=== PATIENT | female | born 1980 | race Caucasian/White ===

== ENCOUNTER 2021-04-08 13:45 | Outpatient (REF) | payer OTHER, SELFPAY ==
[2021-04-12 16:31] LABS: HPV 16 RNA NOT DETECTED (NOT DETECTED); HPV mRNA E6/E7 rflx Detected (Not Detected)
== END 2021-04-08 13:46 | disposition home or self-care (01) ==
LOC: HO.LAB 13:45
PROVIDERS: Visit Provider Obstetrics & Gynecology
DX: Z01.419 Encounter for gynecological examination (general) (routine) without abnormal findings (principal)
CPT/HCPCS: 87624; 87625; 88142

== ENCOUNTER 2021-05-06 09:08 | Outpatient (REF) | payer OTHER, SELFPAY | END 2021-05-06 09:09 | disposition home or self-care (01) | LOC: HO.LAB 09:08 | PROVIDERS: PCP Internal Medicine; Visit Provider Obstetrics & Gynecology | DX: D06.9 Carcinoma in situ of cervix, unspecified (principal); F41.9 Anxiety disorder, unspecified; F17.210 Nicotine dependence, cigarettes, uncomplicated | CPT/HCPCS: 57454; 88305; 88341; 88342; 88360 ==

== ENCOUNTER 2021-05-19 09:41 | Outpatient (REF) | payer OTHER, SELFPAY ==
--- NOTE | ~2021-05-19 | MM_ITS ---
EXAMINATION: MM SCREENING DIGITAL BREAST TOMOSYNTHESIS, BILATERAL CLINICAL INFORMATION: Screening. Asymptomatic. Age 40. No prior breast imaging. Family history breast cancer, paternal aunt. The lifetime risk of breast cancer based on the Tyrer-Cuzick Model is 11%. COMPARISON: None (current study represents initial baseline exam). TECHNIQUE: Digital breast tomosynthesis is performed in both the craniocaudal and mediolateral oblique views along with computer-aided detection (CAD). Synthesized 2D images are generated from the tomosynthesis. FINDINGS: The breasts are heterogeneously dense, which may obscure small masses (ACR BI-RADS breast composition Category c). There are no significant masses, abnormal calcifications, or other abnormalities. The axilla and skin contours are unremarkable. MM/MM tomosynthesis screening BI IMPRESSION: No mammographic evidence of malignancy. ASSESSMENT: BI-RADS 1: Negative RECOMMENDATION: Routine annual mammography screening. This patient's information was entered into a reminder system with a target due date for their next mammogram.
== END 2021-05-19 09:42 | disposition home or self-care (01) ==
LOC: HO.MAMMO 09:41
PROVIDERS: Visit Provider Obstetrics & Gynecology
DX: Z12.31 Encounter for screening mammogram for malignant neoplasm of breast (principal)
CPT/HCPCS: 77063; 77067

== ENCOUNTER → 2021-05-20 11:23 | Outpatient (BNVA) | payer OTHER, SELFPAY | PROVIDERS: PCP Internal Medicine; Visit Provider Obstetrics & Gynecology ==

== ENCOUNTER → 2021-06-03 08:58 | Outpatient (BNVA) | payer OTHER, SELFPAY | PROVIDERS: PCP Internal Medicine; Visit Provider Obstetrics & Gynecology | DX: N87.1 Moderate cervical dysplasia (principal) | CPT/HCPCS: 99212 ==

== ENCOUNTER → 2021-07-29 10:35 | Outpatient (BNVA) | payer OTHER, SELFPAY | PROVIDERS: Visit Provider Obstetrics & Gynecology | DX: N87.1 Moderate cervical dysplasia (principal) | CPT/HCPCS: 99212 ==

== ENCOUNTER 2021-08-01 07:28 | Day surgery (SDC) | payer OTHER, SELFPAY ==
[2021-06-12 13:47] VITALS: BMI 19.5
--- NOTE | 2021-06-19 08:33 | HO.ANESPROP2 ---
Documented by User: Jyoti James NP 06/19/21 08:34 HPI - Anesthesia Eval Consult details Narrative: 40yo F for Cone LEEP with Post Cone ECC, Pelvic Exam PMFSH Active Problems Active Problems: All Active Problems (Updated 05/11/21 @ 16:29 by Brian Ventura MD) DOLORES II (cervical intraepithelial neoplasia II) (Acute) HPV in female (Acute) Candidal vulvovaginitis (Acute) Well woman exam (Acute) Anxiety (Acute) Past Medical History Medical History Anxiety ASCUS with positive high risk HPV Gestational diabetes Tobacco abuse Family History Family History Father COPD (chronic obstructive pulmonary disease) Emphysema lung Mother No problems noted. Maternal Grandfather Heart disease CVD (cardiovascular disease) Paternal Grandfather Heart disease CVD (cardiovascular disease) Paternal Aunt Breast cancer Brother In good health Surgical History Surgical History H/O LEEP History of drainage of abscess Social History Social History Patient : No Meds Allergies Allergy/AdvReac Type Severity Reaction Status Date / Time No Known Allergies Allergy Unknown Verified 04/08/21 13:49 [No Known Allergies*] Home Medications Medication Instructions Recorded Confirmed Last Taken Type norethindrone (contraceptive) 0.35 0.35 mg PO DAILY 09/06/20 09/06/20 Unknown History mg tablet Exam Exam Date and Time: June 19, 2021 0833 Height,Weight and Vital Signs: Height 5 ft 3 in Weight 49.895 kg Assessment and Plan Assessment Anesthesia Assessment: Chart Reviewed Documented by User: Kathy Vance MD 06/20/21 09:15 PMFSH Past Medical History Medical History Anxiety ASCUS with positive high risk HPV Gestational diabetes Tobacco abuse Family History Family History Father COPD (chronic obstructive pulmonary disease) Emphysema lung Mother No problems noted. Maternal Grandfather Heart disease CVD (cardiovascular disease) Paternal Grandfather Heart disease CVD (cardiovascular disease) Paternal Aunt Breast cancer Brother In good health Family history of problems with anesthesia: No Surgical History Surgical History H/O LEEP History of drainage of abscess History of Problems with Anesthesia: No Social History Social History Patient : No Meds Allergies Allergy/AdvReac Type Severity Reaction Status Date / Time No Known Allergies Allergy Unknown Verified 04/08/21 13:49 [No Known Allergies*] Home Medications Medication Instructions Recorded Confirmed Last Taken Type norethindrone (contraceptive) 0.35 0.35 mg PO DAILY 09/06/20 09/06/20 Unknown History mg tablet Exam Airway Mallampati Class: II TM Dist: >3cm Neck ROM: Full Assessment and Plan Assessment Anesthesia Assessment: Anesthesia Plan Discussed Final Anesthetic Review Family History of Problems with Anesthesia: No History of Problems with Anesthesia: No NPO: Yes ASA Class: II Final Preanesthetic Review: No Changes in Pt Med Stat, Meds/Allgs Chart Reviewed, Consent Obtained/Reviewed and Anes Risks/Benef Reviewed Patient Risk: Low Procedure Risk: Low Assessment/Block/Sedation in SS: Assess/Block/Sedation-SS Anesthetic Plan Anesthetic Plan: MAC: Disposition: Standard PACU
--- NOTE | 2021-07-03 08:51 | HO.ANESPROP2 ---
HPI - Anesthesia Eval Consult details Narrative: Resched to 07/18/21 40yo F for Cone LEEP with Post Cone ECC, Pelvic Exam PMFSH Active Problems Active Problems: All Active Problems (Updated 05/11/21 @ 16:29 by Brian Ventura MD) DOLORES II (cervical intraepithelial neoplasia II) (Acute) HPV in female (Acute) Candidal vulvovaginitis (Acute) Well woman exam (Acute) Anxiety (Acute) Past Medical History Medical History Anxiety ASCUS with positive high risk HPV Gestational diabetes Tobacco abuse Family History Family History Father COPD (chronic obstructive pulmonary disease) Emphysema lung Mother No problems noted. Maternal Grandfather Heart disease CVD (cardiovascular disease) Paternal Grandfather Heart disease CVD (cardiovascular disease) Paternal Aunt Breast cancer Brother In good health Family history of problems with anesthesia: No Surgical History Surgical History H/O LEEP History of drainage of abscess History of Problems with Anesthesia: No Meds Allergies Allergy/AdvReac Type Severity Reaction Status Date / Time No Known Allergies Allergy Unknown Verified 07/14/21 08:17 [No Known Allergies*] Active Medications: Current Medications Generic Name Dose Route Start Last Admin Trade Name Freq PRN Reason Stop Dose Admin Acetaminophen 650 mg 06/20/21 09:14 Acetaminophen 325 Mg Tablet PO ONCE PRN Pain, Mild (Pain Scale 1-3) Ondansetron HCl 4 mg 06/20/21 09:14 Ondansetron Hcl 4 Mg/2 Ml Vial IVPUSH ONCE PRN Nausea and Vomiting Home Medications Medication Instructions Recorded Confirmed Last Taken Type norethindrone (contraceptive) 0.35 0.35 mg PO DAILY 09/06/20 07/14/21 Unknown History mg tablet Exam Exam Date and Time: July 03, 2021 0851 Height,Weight and Vital Signs: Height 5 ft 3 in Weight 49.895 kg Assessment and Plan Assessment Anesthesia Assessment: Chart Reviewed Final Anesthetic Review Family History of Problems with Anesthesia: No History of Problems with Anesthesia: No
[2021-08-01] VITALS (8 sets, daily range): BP systolic 78–119; BP diastolic 32–74; PULSE 52–66; RESP 14–18; TEMP 36.3–36.6; O2SAT 99–100
--- NOTE | 2021-08-01 08:26 | MHC.SHP ---
Pre-Procedural Eval Section A Date of Service: 08/01/21 The patient is an INPATIENT: No Changes since office visit: No Cold of Flu in the past 2 weeks, No New Medical Problems, No Changes in Medication and No Patient answered all questions The History & Physical has been completed within 30 days and I have reviewed it.: Yes Section B Chief Complaint: CIN2 Allergies: Allergies Allergy/AdvReac Type Severity Reaction Status Date / Time No Known Allergies Allergy Unknown Verified 07/14/21 08:17 [No Known Allergies*] Plan Diagnosis/Plan: Unchanged I have reviewed the history and physical and performed a pertinent physical examination on my patient. No changes have occurred unless specified.
[2021-08-01 08:28] LABS: UPreg QC Valid YES
[2021-08-01 08:29] LABS: Urine Pregnancy NEGATIVE (NEGATIVE)
[2021-08-01] MEDS: Lactated Ringers 1,000 ML 100 ML IVCONT (08:30)
--- NOTE | 2021-08-01 09:07 | HO.ANESPROP2 ---
HPI - Anesthesia Eval Consult details Narrative: 40 yo female patient for LEEP PMFSH Active Problems Active Problems: All Active Problems (Updated 05/11/21 @ 16:29 by Brian Ventura MD) DOLORES II (cervical intraepithelial neoplasia II) (Acute) HPV in female (Acute) Candidal vulvovaginitis (Acute) Well woman exam (Acute) Anxiety (Acute) Past Medical History Medical History Anxiety ASCUS with positive high risk HPV Gestational diabetes Tobacco abuse Family History Family History Father COPD (chronic obstructive pulmonary disease) Emphysema lung Mother No problems noted. Maternal Grandfather Heart disease CVD (cardiovascular disease) Paternal Grandfather Heart disease CVD (cardiovascular disease) Paternal Aunt Breast cancer Brother In good health Family history of problems with anesthesia: No Surgical History Surgical History H/O LEEP History of drainage of abscess History of Problems with Anesthesia: No Social History Social History Patient Tobacco Use Status: Former Tobacco user Quit Date: 2018 Use of substances other than those prescribed or required for medical reasons: Yes Substance Use Frequency: Daily Are you DNR?: No Advance Directives: No Advance Directives Information Provided: Yes Meds Allergies Allergy/AdvReac Type Severity Reaction Status Date / Time No Known Allergies Allergy Unknown Verified 07/14/21 08:17 [No Known Allergies*] Active Medications: Current Medications Acetaminophen (Acetaminophen 325 Mg Tablet) 650 mg PO ONCE PRN PRN Reason: Pain, Mild (Pain Scale 1-3) Lactated Ringer's (Lr) 1,000 mls @ 100 mls/hr IVCONT .Q10H BANDAR Last Admin: 08/01/21 08:30 Dose: 100 mls/hr Documented by: Ondansetron HCl (Ondansetron Hcl 4 Mg/2 Ml Vial) 4 mg IVPUSH ONCE PRN PRN Reason: Nausea and Vomiting Home Medications Medication Instructions Recorded Confirmed Last Taken Type norethindrone (contraceptive) 0.35 0.35 mg PO DAILY 09/06/20 07/14/21 Unknown History mg tablet Exam Exam Date and Time: August 01, 2021 0907 Height,Weight and Vital Signs: Height 5 ft 3 in Weight 49.895 kg Last Vital Signs Temp 97.8 F 08/01/21 08:00 Pulse 58 08/01/21 08:00 Resp 15 08/01/21 08:00 BP 119/74 08/01/21 08:00 Pulse Ox 99 08/01/21 08:00 Pertinent Lab Results Pertinent Lab Results: Laboratory Tests 08/01/21 08:19 Urine Test NEGATIVE Airway Mallampati Class: I TM Dist: >3cm Neck ROM: Full Loose/Missing/Broken Teeth: No Heart: RRR Lungs: CTAB Assessment and Plan Assessment Anesthesia Assessment: Anesthesia Plan Discussed and Chart Reviewed Final Anesthetic Review Family History of Problems with Anesthesia: No History of Problems with Anesthesia: No NPO: Yes ASA Class: II Final Preanesthetic Review: No Changes in Pt Med Stat, Meds/Allgs Chart Reviewed, Consent Obtained/Reviewed and Anes Risks/Benef Reviewed Patient Risk: Low Procedure Risk: Low Assessment/Block/Sedation in SS: Assess/Block/Sedation-SS Anesthetic Plan Anesthetic Plan: GA Disposition: Standard PACU
--- NOTE | 2021-08-01 09:46 | HO.ANESPROP2 ---
HPI - Anesthesia Eval Consult details Narrative: 40yo female patient for LEEP PMFSH Active Problems Active Problems: All Active Problems (Updated 05/11/21 @ 16:29 by Brian Ventura MD) DOLORES II (cervical intraepithelial neoplasia II) (Acute) HPV in female (Acute) Candidal vulvovaginitis (Acute) Well woman exam (Acute) Anxiety (Acute) Daily marijuana Past Medical History Medical History Anxiety ASCUS with positive high risk HPV Gestational diabetes Tobacco abuse Family History Family History Father COPD (chronic obstructive pulmonary disease) Emphysema lung Mother No problems noted. Maternal Grandfather Heart disease CVD (cardiovascular disease) Paternal Grandfather Heart disease CVD (cardiovascular disease) Paternal Aunt Breast cancer Brother In good health Family history of problems with anesthesia: No Surgical History Surgical History H/O LEEP History of drainage of abscess History of Problems with Anesthesia: No Social History Social History (Updated 08/01/21 @ 09:50 by Berkley Sweet MD) Patient Tobacco Use Status: Former Tobacco user Quit Date: 2018 Use of substances other than those prescribed or required for medical reasons: Yes Substance Use Type: Marijuana Substance Use Frequency: Daily Are you DNR?: No Advance Directives: No Advance Directives Information Provided: Yes Meds Allergies Allergy/AdvReac Type Severity Reaction Status Date / Time No Known Allergies Allergy Unknown Verified 07/14/21 08:17 [No Known Allergies*] Active Medications: Current Medications Acetaminophen (Acetaminophen 325 Mg Tablet) 650 mg PO ONCE PRN PRN Reason: Pain, Mild (Pain Scale 1-3) Acetaminophen (Acetaminophen 325 Mg Tablet) 650 mg PO ONCE PRN PRN Reason: Pain, Mild (Pain Scale 1-3) Fentanyl (Fentanyl Citrate/Pf 100 Mcg/2 Ml Vial) 25 mcg IVPUSH Q5M PRN; Protocol PRN Reason: Pain, Moderate (Pain Scale 4-6 Lactated Ringer's (Lr) 1,000 mls @ 100 mls/hr IVCONT .Q10H BANDAR Last Admin: 08/01/21 08:30 Dose: 100 mls/hr Documented by: Promethazine HCl 6.25 mg/ (Sodium Chloride) 50.25 mls @ 201 mls/hr IV ONCE PRN PRN Reason: Nausea and Vomiting Ketorolac Tromethamine (Ketorolac Tromethamine 15 Mg/Ml Vial) 15 mg IVPUSH ONCE PRN PRN Reason: Pain, Moderate (Pain Scale 4-6 Ondansetron HCl (Ondansetron Hcl 4 Mg/2 Ml Vial) 4 mg IVPUSH ONCE PRN PRN Reason: Nausea and Vomiting Ondansetron HCl (Ondansetron Hcl 4 Mg/2 Ml Vial) 4 mg IVPUSH ONCE PRN PRN Reason: Nausea and Vomiting Oxycodone HCl (Oxycodone Hcl Immed Release 5 Mg Tablet) 5 mg PO ONCE PRN PRN Reason: Pain, Severe (Pain Scale 7-10) Home Medications Medication Instructions Recorded Confirmed Last Taken Type norethindrone (contraceptive) 0.35 0.35 mg PO DAILY 09/06/20 07/14/21 Unknown History mg tablet Exam Exam Date and Time: August 01, 2021 0946 Height,Weight and Vital Signs: Height 5 ft 3 in Weight 49.895 kg Last Vital Signs Temp 97.8 F 08/01/21 08:00 Pulse 58 08/01/21 08:00 Resp 15 08/01/21 08:00 BP 119/74 08/01/21 08:00 Pulse Ox 99 08/01/21 08:00 Pertinent Lab Results Pertinent Lab Results: Laboratory Tests 08/01/21 08:19 Urine Test NEGATIVE Airway Mallampati Class: I TM Dist: >3cm Neck ROM: Full Loose/Missing/Broken Teeth: No Heart: RRR Lungs: CTAB Assessment and Plan Assessment Anesthesia Assessment: Anesthesia Plan Discussed and Chart Reviewed Final Anesthetic Review Family History of Problems with Anesthesia: No History of Problems with Anesthesia: No NPO: Yes ASA Class: II Final Preanesthetic Review: No Changes in Pt Med Stat, Meds/Allgs Chart Reviewed, Consent Obtained/Reviewed and Anes Risks/Benef Reviewed Patient Risk: Low Procedure Risk: Low Assessment/Block/Sedation in SS: Assess/Block/Sedation- Anesthetic Plan Anesthetic Plan: GA Disposition: Standard PACU
--- NOTE | 2021-08-01 09:58 | P.BOP_ITS ---
Brief Operative Note Date of Service: 08/01/21 Pre-op diagnosis: DOLORES 2 Post-op diagnosis: same Procedure: LEEP CONE with post CONE ECC Surgeon: Vito Hinojosa MD Anesthesia: MAC, local and other (Paracervical block) Was an Bad Credit Collector used for this Procedure?: No Estimated blood loss (mL): 0 Pathology: other (Ant+post Cerv lip, Endocx, Post cone ECC) Condition: stable Disposition: other (Home)
--- NOTE | 2021-08-01 09:59 | W.PM.OPN ---
Operative Note Operative Note Date of Service: 08/01/21 Narrative: Preop diagnosis: DOLORES 2 Operation: LEEP Cone with post cone ECC Post op diagnosis: same Anesthesia: paracervical block. MAC Complications: none Pathology: Anterior and Posterior cervical lip with endocervix & post cone ECC QBL: minimal Procedure: The patient was put in the dorsal lithotomy position, was prepped and draped in the usual sterile fashion. A sterile speculum was inserted inside the patient vagina. Using Lugol solution the cervix with Dyed with Lugol solution to identifiy the abnormal demarcating line. 10 cc of Marcaine0.5% with epinephrine were given at 2,4 , 8, and 10 o'clock. Using a medium-size loop wire, the anterior cervical lip was excised followed by the posterior cervical lip and endocervix, post cone ECC was done afterwards. Hemostasis was assured using cautery and Monsel solution. All instruments were taken out of the patient's vaginal cavity. the patient tolerated the procedure well and was discharged home with the following instructions: call if temperature is above 100.4, vaginal bleeding, abdominal pain or nausea or vomiting. Follow-up in the office in 2 weeks for postop visit
== END 2021-08-01 11:20 | disposition home or self-care (01) ==
PROVIDERS: Nurse Practitioner; PCP Internal Medicine; Visit Provider Obstetrics & Gynecology
PROC: 0UBC7ZZ Excision of Cervix, Via Natural or Artificial Opening (ICD-10-PCS; CPT 57522; principal; 2021-08-01 09:10)
DX: N87.1 Moderate cervical dysplasia (principal); F41.9 Anxiety disorder, unspecified; Z87.891 Personal history of nicotine dependence
CPT/HCPCS: 57522; 81025; 88305; 88307; 88342; 88360; J1100; J2250; J2405; J3010

== ENCOUNTER → 2021-08-14 11:14 | Outpatient (BNVA) | payer OTHER, SELFPAY | PROVIDERS: PCP Internal Medicine; Visit Provider Obstetrics & Gynecology ==

== ENCOUNTER 2021-10-01 12:29 | Outpatient (REF) | payer OTHER, SELFPAY ==
[2021-10-02 01:25] LABS: CT PCR NOT DETECTED (Not Detect.); NG PCR NOT DETECTED (Not Detect.)
[2021-10-02 10:15] LABS: BV Int Neg Control Negative (Negative); BV Int Pos Control Positive (Positive)
== END 2021-10-01 12:30 | disposition home or self-care (01) ==
LOC: HO.LAB 12:29
PROVIDERS: PCP Internal Medicine; Visit Provider Obstetrics & Gynecology
DX: Z11.3 Encounter for screening for infections with a predominantly sexual mode of transmission (principal); R31.29 Other microscopic hematuria; B37.3 Candidiasis of vulva and vagina
CPT/HCPCS: 87086; 87480; 87491; 87510; 87591; 87660; 99212

== ENCOUNTER → 2021-10-15 10:01 | Outpatient (BNVA) | payer OTHER, SELFPAY | PROVIDERS: PCP Internal Medicine; Visit Provider Obstetrics & Gynecology | DX: R31.29 Other microscopic hematuria (principal); N94.10 Unspecified dyspareunia | CPT/HCPCS: 99212 ==

== ENCOUNTER 2022-02-17 13:49 | Outpatient (REF) | payer OTHER, SELFPAY ==
[2022-02-18 12:11] LABS: BV Int Neg Control Negative (Negative); BV Int Pos Control Positive (Positive)
[2022-02-18 12:41] LABS: CT PCR NOT DETECTED (Not Detect.); NG PCR NOT DETECTED (Not Detect.)
[2022-02-21 22:52] LABS: HPV 16 RNA NOT DETECTED (NOT DETECTED); HPV mRNA E6/E7 rflx Detected (Not Detected)
== END 2022-02-17 13:50 | disposition home or self-care (01) ==
LOC: HO.LAB 13:49
PROVIDERS: PCP Internal Medicine; Visit Provider Obstetrics & Gynecology
DX: N87.1 Moderate cervical dysplasia (principal); B37.3 Candidiasis of vulva and vagina; Z11.51 Encounter for screening for human papillomavirus (HPV)
CPT/HCPCS: 87480; 87491; 87510; 87591; 87624; 87625; 87660; 88142; 99212

== ENCOUNTER 2022-03-11 13:58 | Outpatient (REF) | payer OTHER, SELFPAY | END 2022-03-11 13:59 | disposition home or self-care (01) | LOC: HO.LAB 13:58 | PROVIDERS: PCP Internal Medicine; Visit Provider Obstetrics & Gynecology | DX: R87.610 Atypical squamous cells of undetermined significance on cytologic smear of cervix (ASC-US) (principal); R87.810 Cervical high risk human papillomavirus (HPV) DNA test positive; Z32.02 Encounter for pregnancy test, result negative | CPT/HCPCS: 57454; 81025; 88305; 88342; 88360 ==

== ENCOUNTER → 2022-04-14 09:41 | Outpatient (BNVA) | payer OTHER, SELFPAY | PROVIDERS: PCP Internal Medicine; Visit Provider Obstetrics & Gynecology | DX: R87.610 Atypical squamous cells of undetermined significance on cytologic smear of cervix (ASC-US) (principal); R87.810 Cervical high risk human papillomavirus (HPV) DNA test positive; Z98.890 Other specified postprocedural states | CPT/HCPCS: 99212 ==

== ENCOUNTER 2022-05-20 09:49 | Outpatient (REF) | payer OTHER, SELFPAY ==
--- NOTE | ~2022-05-20 | MM_ITS ---
EXAMINATION: MM SCREENING DIGITAL BREAST TOMOSYNTHESIS, BILATERAL CLINICAL INFORMATION: Screening. Asymptomatic. The lifetime risk of breast cancer based on the Tyrer-Cuzick Model is 12.4%. COMPARISON: Mammography: May 19, 2021 TECHNIQUE: Digital mammography is performed in craniocaudal and mediolateral oblique views along with computer-aided detection (CAD). Digital breast tomosynthesis is performed in implant-displaced craniocaudal and implant-displaced mediolateral oblique views along with computer-aided detection (CAD). Synthesized 2D images are generated from the tomosynthesis. This is the first postimplant study. FINDINGS: The breasts are heterogeneously dense, which may obscure small masses (ACR BI-RADS breast composition Category c). There are no significant masses, abnormal calcifications, or other abnormalities. MM/MM tomosynthesis screen imp BI IMPRESSION: No mammographic evidence of malignancy. ASSESSMENT: BI-RADS 1: Negative RECOMMENDATION: Routine annual mammography screening. This patient's information was entered into a reminder system with a target due date for their next mammogram.
== END 2022-05-20 09:50 | disposition home or self-care (01) ==
LOC: HO.MAMMO 09:49
PROVIDERS: Visit Provider Obstetrics & Gynecology
DX: Z12.31 Encounter for screening mammogram for malignant neoplasm of breast (principal)
CPT/HCPCS: 77063; 77067

== ENCOUNTER 2022-06-10 08:27 | Outpatient (REF) | payer OTHER, SELFPAY ==
[2022-06-10 15:36] LABS: CT PCR NOT DETECTED (Not Detect.); NG PCR NOT DETECTED (Not Detect.)
[2022-06-11 13:01] LABS: BV Int Neg Control Negative (Negative); BV Int Pos Control Positive (Positive)
== END 2022-06-10 08:28 | disposition home or self-care (01) ==
LOC: HO.LAB 08:27
PROVIDERS: PCP Internal Medicine; Visit Provider Obstetrics & Gynecology
DX: R31.29 Other microscopic hematuria (principal); N76.0 Acute vaginitis; B96.89 Other specified bacterial agents as the cause of diseases classified elsewhere
CPT/HCPCS: 87480; 87491; 87510; 87591; 87660; 99212

== ENCOUNTER 2022-08-04 08:27 | Outpatient (REF) | payer OTHER, SELFPAY ==
--- NOTE | ~2022-08-04 | CT_ITS ---
EXAMINATION: CT ABDOMEN AND PELVIS WITHOUT AND WITH CONTRAST CLINICAL INFORMATION: Microscopic hematuria COMPARISON: None TECHNIQUE: Multidetector volumetric imaging was performed of the abdomen and pelvis before and after the IV administration of mL of Omnipaque 300 intravenous contrast. Sagittal and coronal reformatted images were obtained on the technologist's workstation. This CT examination was performed using dose optimization techniques as appropriate, variously including the following: *Automated exposure control *Adjustment of mA and/or kV according to patient size (this includes techniques or standardized protocols for targeted exams where dose is matched to indication/reason for exam; i.e. extremities or head) *Use of iterative reconstruction technique DLP: 431 mGy-cm FINDINGS: LUNG BASES: The visualized lung bases are unremarkable. LIVER, GALLBLADDER, AND BILIARY TREE: The liver is normal in size, shape, and attenuation. No focal hepatic lesion or biliary ductal dilatation is present. The gallbladder is unremarkable with no evidence of radiopaque gallstones, gallbladder wall thickening, or obvious pericholecystic inflammatory changes. PANCREAS: Unremarkable SPLEEN: Unremarkable ADRENAL GLANDS: Unremarkable KIDNEYS AND URETERS: The kidneys are normal in size, shape, and attenuation. There are 2 tiny 1 mm left mid and lower pole stones. No hydronephrosis or hydroureter. No perinephric stranding. The collecting systems are normal. The ureters are not optimally opacified with contrast. BLADDER: Not optimally distended and not well evaluated. GASTROINTESTINAL TRACT: The small and large bowel are unremarkable. The appendix is not identified with certainty. No inflammatory changes in the right lower quadrant.. ABDOMINAL WALL: Small umbilical and periumbilical hernias containing fat. LYMPH NODES: Normal VASCULAR: Unremarkable PELVIC VISCERA: There are prominent bilateral pelvic veins questionable for pelvic congestion. Uterus and adnexa are otherwise unremarkable. OSSEOUS STRUCTURES: Unremarkable CT/CT abdomen pelvis wo/w IV con IMPRESSION: 2 tiny left renal stones. Bladder not well distended and not well evaluated. Prominent pelvic vessels questionable for pelvic congestion. Fleischner guidelines were followed.
[2022-08-04] MEDS: iohexoL 350 MG/ML 100 ML INFUS..BTL IV (09:21)
== END 2022-08-04 08:28 | disposition home or self-care (01) ==
LOC: HO.CT 08:27
PROVIDERS: PCP Internal Medicine; Visit Provider Obstetrics & Gynecology
DX: R31.29 Other microscopic hematuria (principal)
CPT/HCPCS: 74178; Q9967

== ENCOUNTER 2023-02-03 09:53 | Outpatient (REF) | payer OTHER, SELFPAY ==
[2023-02-03 14:00] LABS: CT PCR NOT DETECTED (Not Detect.); NG PCR NOT DETECTED (Not Detect.)
[2023-02-04 10:01] LABS: BV Int Neg Control Negative (Negative); BV Int Pos Control Positive (Positive)
== END 2023-02-03 09:54 | disposition home or self-care (01) ==
LOC: HO.LAB 09:53
PROVIDERS: PCP Internal Medicine; Visit Provider Advanced Practice Midwife
DX: N89.8 Other specified noninflammatory disorders of vagina (principal); R21 Rash and other nonspecific skin eruption; Z20.2 Contact with and (suspected) exposure to infections with a predominantly sexual mode of transmission
CPT/HCPCS: 0353U; 87480; 87510; 87660; 99212

== ENCOUNTER 2023-02-03 10:35 | Outpatient (REF) | payer OTHER, SELFPAY | END 2023-02-03 10:36 | disposition home or self-care (01) | LOC: HO.LNP 10:35 | PROVIDERS: Visit Provider Advanced Practice Midwife | DX: Z13.89 Encounter for screening for other disorder (principal) ==

== ENCOUNTER 2023-06-02 10:10 | Outpatient (REF) | payer OTHER, SELFPAY ==
[2023-06-08 06:34] LABS: HPV mRNA E6/E7 rflx Not Detected (Not Detected)
== END 2023-06-02 10:11 | disposition home or self-care (01) ==
LOC: HO.LNP 10:10
PROVIDERS: PCP Internal Medicine; Visit Provider Obstetrics & Gynecology
DX: Z01.419 Encounter for gynecological examination (general) (routine) without abnormal findings (principal); Z11.51 Encounter for screening for human papillomavirus (HPV)
CPT/HCPCS: 87624; 88142

== ENCOUNTER 2023-06-02 10:10 | Outpatient (AMB) | payer OTHER, SELFPAY ==
--- NOTE | 2023-06-02 10:17 | A.OFFVIS_ITS ---
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 No complaints. Last Pap/HPV was ascus/HPV positive, followed by colpo/biopsy/ECC which was negative Last Mammogram was BI-RADS 1 in 05/22 [facility] Medical History Anxiety ASCUS with positive high risk HPV Gestational diabetes Screening for hyperlipidemia Screening for hypothyroidism Tobacco abuse Surgical History H/O breast augmentation H/O LEEP History of drainage of abscess Family History Father COPD (chronic obstructive pulmonary disease) Emphysema lung Mother Mental health disorder Maternal Grandfather Heart disease CVD (cardiovascular disease) Paternal Grandfather Heart disease CVD (cardiovascular disease) Paternal Aunt Breast cancer Brother In good health Social History Housing: Apartment Alcohol intake: current Patient Tobacco Use Status: Former Tobacco user Quit Date: 2019 Years Smoked: stopped 2018 e-Cigarette/Vaping Use: Never Used Second Hand Smoke Exposure: No Substance Use Type: Marijuana service: No Current occupational status: employed 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 Cognitive needs: No Hearing needs: No Vision needs: No Female Reproductive History Menstrual Age of Menarche: 10 Duration of menses: 3-5 days Date of last menstrual period: 05/28/23 control method: permanent sterilization Permanent Sterilization: Vasectomy Total pregnancies: 5 Full term: 3 Number of Living Children: 3 Date of last pap smear: 02/18/22 (ascus +hpv) History of abnormal pap smear: Yes (03/22 colpo 04/21 +hpv 05/21 colpo cin2 08/21 leep cin2) Date of Mammogram: 05/20/22 Review of Systems Const All systems reviewed & are unremarkable except as noted in HPI and below Card Reports as per HPI Resp Reports as per HPI GI Reports as per HPI and Reports no additional complaints Reports as per HPI Physical Exam Vital Signs: Last Vital Signs BP 100/60 06/02/23 10:18 BMI result Body Mass Index 21.4 Const General: cooperative, healthy appearing and comfortable Chest Chest palpation & inspection: normal inspection of the chest and normal palpation of entire chest wall Breast/axilla inspection: normal inspection of the breasts and normal inspection of the axillae Breast/axilla palpation: normal palpation of the breasts, normal palpation of the axillae and no axillary lymphadenopathy Resp Effort & Inspection: normal respiratory effort Auscultation: clear to auscultation bilaterally Percussion: percussion normal Cardio Palpation: normal PMI Rate: regular rate Rhythm: regular rhythm Heart sounds: no murmurs and no rubs Peripheral pulses: Peripheral pulses 2+ throughout GI Inspection: Yes normal to inspection Palpation (GI): Soft to palpation, nontender, no guarding, not rigid and No hepatosplenomegaly present Percussion: Yes normal to percussion Auscultation: normal bowel sounds Rectal Exam - Female: deferred General: Yes bladder normal to palpation External Female Exam: No lesion Speculum Exam - Vagina: normal appearance of the vagina, normal palpation, normal vaginal discharge and not erythematous Speculum Exam - Cervix: normal appearance of the cervix and normal palpation Bimanual exam- vagina & uterus: normal bimanual exam, normal palpation, uterine size normal, bladder normal to palpation, consistency normal and normal palpation Bimanual Exam- Adnexa, other: normal adnexae, no masses and no tenderness Assessment & Plan Assessment & Plan (1) Well woman exam: Code(s): Z01.419 - Encounter for gynecological examination (general) (routine) without abnormal findings Plan: Cotesting done. Mammogram ordered. Counseled the patient about the recommended dietary allowance of 1000 mg of Calcium & 600 IU of vitamin D. The patient was instructed to perform monthly self-breast exams and to schedule an annual exam in a year; All questions answered and the patient verbalized understanding. Instructed the patient to schedule annual exam in a year Orders: Orders MM screening mammo BI Today Z12.31 - Encounter for screening mammogram for malignant neoplasm of breast Coding Level of Care Code Est Pt Prev Care 40-64y(47901) Diagnoses Well woman exam Z01.419
[2023-06-02 10:18] VITALS: BP 100/60; BMI 21.4
== END 2023-06-02 10:33 | disposition home or self-care (01) ==
LOC: HO.HWS 10:10
PROVIDERS: PCP Internal Medicine; Visit Provider Obstetrics & Gynecology
DX: Z01.419 Encounter for gynecological examination (general) (routine) without abnormal findings (principal)
CPT/HCPCS: 99396

== ENCOUNTER 2023-07-06 13:26 | Outpatient (REF) | payer OTHER, SELFPAY ==
--- NOTE | ~2023-07-06 | MM_ITS ---
EXAMINATION: MM SCREENING DIGITAL BREAST TOMOSYNTHESIS, BILATERAL CLINICAL INFORMATION: Screening. Asymptomatic. COMPARISON: Mammography: 05/20/2022, 05/19/2021. TECHNIQUE: Digital mammography is performed in craniocaudal and mediolateral oblique views along with computer-aided detection (CAD). Digital breast tomosynthesis is performed in implant-displaced craniocaudal and implant-displaced mediolateral oblique views along with computer-aided detection (CAD). Synthesized 2D images are generated from the tomosynthesis. FINDINGS: The breasts are heterogeneously dense, which may obscure small masses (ACR BI-RADS breast composition Category c). Implants are present and appear intact. No complication evident. There are no suspicious masses, suspicious grouped calcifications, or areas of architectural distortion. The parenchymal pattern is stable from prior exams. MM/MM tomosynthesis screen imp BI IMPRESSION: There are no significant changes from prior study. ASSESSMENT: BI-RADS BI-RADS 1 - Negative RECOMMENDATION: Routine annual mammography screening. 1 year F/U This patient's information was entered into a reminder system with a target due date for their next mammogram.
== END 2023-07-06 13:27 | disposition home or self-care (01) ==
LOC: HO.MAMMO 13:26
PROVIDERS: PCP Internal Medicine; Visit Provider Obstetrics & Gynecology
DX: Z12.31 Encounter for screening mammogram for malignant neoplasm of breast (principal)
CPT/HCPCS: 77063; 77067

== ENCOUNTER → 2023-07-06 13:30 | Outpatient (BNV) | payer OTHER, SELFPAY | PROVIDERS: PCP Internal Medicine; Visit Provider Radiology Diagnostic Radiology | DX: Z12.31 Encounter for screening mammogram for malignant neoplasm of breast (principal) | CPT/HCPCS: 77063; 77067 ==

== ENCOUNTER 2024-03-31 08:56 | Outpatient (AMB) | payer OTHER, SELFPAY ==
[2024-03-31 09:02] VITALS: BP 98/68; PULSE 60; O2SAT 99; BMI 20.5
--- NOTE | 2024-03-31 09:02 | MHC.PC.OV ---
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: No Allergies No Known Allergies [No Known Allergies*] Allergy (Unknown, Verified 03/31/24 09:02) Medication List - Last Reconciled 03/31/24 by Brian Ventura MD Tobacco use date assessed: 03/31/24 Dental Screening Dental Screen Date: 03/31/24 Did you have a dental visit in the last 12 months?: No Did you have a dental problem in the last 6 months where you did not have access to dental care?: No Was dental information given to patient?: Patient has dentist HPI pe HPI Details 43-year-old female with a history of DOLORES 2 generalized anxiety disorder coming in for physical exam last seen in 03/20/2023. 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 tendinitis- but better PFSH Medical History Anxiety ASCUS with positive high risk HPV Gestational diabetes Screening for hyperlipidemia Screening for hypothyroidism Tobacco abuse Surgical History H/O breast augmentation H/O LEEP History of drainage of abscess Family History Father COPD (chronic obstructive pulmonary disease) Emphysema lung Mother Mental health disorder Maternal Grandfather Heart disease CVD (cardiovascular disease) Paternal Grandfather Heart disease CVD (cardiovascular disease) Paternal Aunt Breast cancer Brother In good health Social History (Updated 03/31/24 @ 09:30 by Brian Ventura MD) Housing: Apartment Alcohol intake: current Comment: twice a month 1 drink Patient Tobacco Use Status: Former Tobacco user Years Smoked: stopped 2019 smoke weed e-Cigarette/Vaping Use: Never Used Second Hand Smoke Exposure: No Substance Use Type: Marijuana service: No Current occupational status: employed 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 1. Little interest or pleasure in doing things: not at all 2. Feeling down, depressed, or hopeless: not at all 3. Trouble falling or staying asleep, or sleeping too much: not at all 4. Feeling tired or having little energy: not at all 5. Poor appetite or overeating: not at all 6. Feeling bad about yourself - or that you are a failure or have let yourself or your family down: not at all 7. Trouble concentrating on things, such as reading the newspaper or watching television: not at all 8. Moving or speaking so slowly that other people could have noticed. Or the opposite - being so fidgety or restless that you have been moving around a lot more than usual: not at all 9. Thoughts that you would be better off or of hurting yourself in some way: not at all Total score: 0 Depression Screening Interpretation: Negative Depression Screening Done: Yes 80185 - PHQ-9 Billing: Yes Source: Developed by Drs. Harvey Baez, Barbara Barry, Jeet Orozco and colleagues, with an educational tatiana from [employer]. Thrive Questionnaire Date Thrive assessed: 03/31/24 I am a: Patient What is your living situation today?: I have a steady place to live Within the past 12 months, did the food you bought not last and you didn't have the money to get more?: Never true Within the past 12 months, did you worry whether your food would run out before you got money to buy more?: Never true Do you have trouble paying for medicines?: No Do you have trouble getting transportation to medical appointments?: No Do you have trouble paying your heating and electricity bill?: No Do you have trouble taking care of your child, family member or friend?: No Do you have trouble with day-to-day activities such as bathing, preparing meals, shopping, managing finances, etc.?: No Are you currently unemployed and looking for a job?: No Are you interested in more education?: No Please select the resources that you would like help with: None Currently or been in a relationship where the following occur: no concerns reported THRIVE Score: 0 AUDIT C Alcohol Use Questionnaire (AUDIT-C) 1. How often do you have a drink containing alcohol?: Never 3. How often do you have six or more drinks on one occasion?: Never Total Score: 0 Score Reviewed/Action Taken: Yes (reviewed no action needed) PINA-7 AMB Questionnaire PINA-7 Date PINA - 7 assessed: 03/31/24 Feeling nervous, anxious, or on edge: 0 = Not at all Not being able to stop or control worryin = Not at all Worrying too much about different things: 0 = Not at all Trouble relaxin = Not at all Being so restless that it is hard to sit still: 0 = Not at all Becoming easily annoyed or irritable: 0 = Not at all Feeling afraid as if something awful might happen: 0 = Not at all Total PINA-7 score (0-4 normal; 5-9 mild; 10-14 moderate; 15-21 severe): 0 Source: Developed by Drs. Harvey Baez, Barbara Barry, Jeet Orozco and colleagues, with an educational tatiana from [employer]. PINA-7 Assessment Billing PINA-7 Assessment Tool: PINA-7 Assessment 90042 Review of Systems Const Denies poor appetite and Denies weakness Eyes Denies no additional complaints ENT Reports Normal hearing present, Denies dizziness, Denies nasal congestion, Denies tinnitus and Denies sore throat Card Denies chest pain, Denies syncope, Denies rapid heart rate and Denies dyspnea Resp Denies cough and Denies dyspnea GI Denies change in stool character, Reports constipation, Denies diarrhea, Denies nausea and Denies vomiting Denies urinary frequency, Denies difficulty voiding and Denies dysuria Neuro Reports Normal hearing present, Denies confusion, Denies dizziness, Denies syncope and Denies weakness Psych Denies confusion Physical exam (Primary Care) Vital Signs: Last Vital Signs Pulse 60 03/31/24 09:02 BP 98/68 03/31/24 09:02 Pulse Ox 99 03/31/24 09:02 Oxygen Delivery Method Room Air 03/31/24 09:02 BMI result Body Mass Index 20.5 Tobacco/Smoking Status: Tobacco use Status Tobacco use date assessed 03/31/24 03/31/24 09:10 Patient Tobacco Use Status Former Tobacco user 03/31/24 09:10 e-Cigarette/Vaping Use Never Used 03/31/24 09:10 PHQ-9: PHQ-9 Score PHQ-9: Total score 0 03/31/24 09:10 Depression Screening Interpretation: Negative Thrive Assessment: Date of Thrive Assessment Date Thrive assessed 03/31/24 03/31/24 09:10 Currently or been in a relationship where the following occur: no concerns reported Const General: No confusion Orientation/consciousness: No confusion HENMT Head: Yes normocephalic Ears: external ears normal and TM's normal bilaterally Face and sinus: Yes normal facial exam Mouth: moist mucous membranes Throat: Yes tonsils normal Eyes Conjunctivae: conjunctivae normal Pupils: Equal, round and reactive pupils present and Pupil accommodation reflex normal Direct Ophthalmoscopy: normal light reflex Neck Neck: No lymphadenopathy Thyroid: Thyroid normal Chest Chest palpation & inspection: normal inspection of the chest Resp Effort & Inspection: normal respiratory effort and no audible wheezes Auscultation: clear to auscultation bilaterally, no crackles, no wheezes and lung sounds not diminished Cardio Rate: regular rate Rhythm: regular rhythm Peripheral pulses: radial pulses present and dorsalis pedis present GI Palpation (GI): no masses Auscultation: normal bowel sounds and normoactive bowel sounds Rectal Exam - Female: deferred Skin General skin exam: no rashes or lesions noted Rashes: no rashes Neuro General: No confusion Cranial nerves: Yes Equal, round and reactive pupils present and Yes Normal hearing present Cognition (Neuro): normal cognition Gait exam (Neuro): Normal gait present Motor exam (neuro): 5/5 motor strength present throughout Deep tendon reflexes (DTR's): Right brachioradialis reflex intensity grade: 2+, Left brachioradialis reflex intensity grade: 2+, Right patellar reflex intensity grade: 2+ and Left patellar reflex intensity grade: 2+ Extrem General: No edema Assessment and Plan Assessment & Plan (1) Annual physical exam: Code(s): Z00.00 - Encounter for general adult medical examination without abnormal findings (2) ASCUS with positive high risk HPV cervical: Comment: History of DOLORES 2 status post LEEP cone with negative margins Colpo biopsy/ ECC negative Code(s): R87.610 - Atypical squamous cells of undetermined significance on cytologic smear of cervix (ASC-US); R87.810 - Cervical high risk human papillomavirus (HPV) DNA test positive Plan: Continue to follow-up with gynecology with cervical cancer screening yearly. (3) Generalized anxiety disorder: Comment: psych Wellness Sonal Stephenie Code(s): F41.1 - Generalized anxiety disorder Plan: Stable (4) Renal calculus, left: Comment: August 2022 Code(s): N20.0 - Calculus of kidney Orders: Orders Lipid Panel Today E78.00 - Pure hypercholesterolemia, unspecified, N20.0 - Calculus of kidney Vitamin D 25-OH Total Today N20.0 - Calculus of kidney Complete Blood Count Auto Diff Today N20.0 - Calculus of kidney Comprehensive Met. Panel Today N20.0 - Calculus of kidney Free T4 (Free Thyroxine) Today N20.0 - Calculus of kidney Thyroid Stimulating Hormone Today N20.0 - Calculus of kidney Vitamin B12 and Folate Today N20.0 - Calculus of kidney Coding Level of Care Code Est Pt Prev Care 40-64y(50713) Diagnoses Annual physical exam Z00.00 ASCUS with positive high risk HPV cervical R87.610; R87.810 Generalized anxiety disorder F41.1 Renal calculus, left N20.0 Additional Codes PINA-7 Assessment Billing - PINA-7 Assessment Tool: PINA-7 Assessment 77138 ([id number])
== END 2024-03-31 09:39 | disposition home or self-care (01) ==
PROVIDERS: Visit Provider Internal Medicine
DX: Z00.00 Encounter for general adult medical examination without abnormal findings (principal); R87.610 Atypical squamous cells of undetermined significance on cytologic smear of cervix (ASC-US); R87.810 Cervical high risk human papillomavirus (HPV) DNA test positive; F41.1 Generalized anxiety disorder; N20.0 Calculus of kidney
CPT/HCPCS: 99396

== ENCOUNTER 2024-04-26 07:24 | Outpatient (REF) | payer OTHER, SELFPAY ==
[2024-04-26 07:37] LABS: MANUAL DIFF FLAG NO
[2024-04-26 08:15] LABS: Basophils Percent Auto 0.5 % (0-2); Eosinophils Absolute Auto 0.1 X10*3/uL (0.0-0.4); Eosinophils Percent Auto 0.9 % (0-4); Hematocrit 41.6 % (37.0-47.0); Hemoglobin 13.8 g/dl (12.0-16.0); Imm Gran Abs Auto 0.03 X10*3/uL (0.00-0.03); Imm Gran Pct Auto 0.5 % (0.0-0.4); Lymphocytes Percent Auto 35.7 % (20-40); Mean Corpuscular HGB Conc 33.2 g/dl (31.0-35.0); Mean Corpuscular Hemoglobin 29.6 pg (27.0-33.0); Mean Corpuscular Volume 89.3 fL (80.0-98.0); Mean Platelet Volume 9.5 fL (9.4-12.3); Monocytes Absolute Auto 0.4 X10*3/uL (0.1-1.2); Neutrophils Absolute Auto 3.2 x10*3/uL (2.0-8.3); Neutrophils Percent Auto 55.4 % (45-73); Platelet Count 249 X10*3/uL (160-400); Red Blood Count 4.66 X10*6/uL (4.20-5.50); Red Cell Distribution Width 12.8 % (11.0-16.0); White Blood Count 5.7 X10*3/uL (4.8-10.8)
[2024-04-26 08:50] LABS: Alanine Aminotransferase 8 U/L (0-31); Albumin Level 4.3 g/dL (3.5-5.0); Alkaline Phosphatase 51 U/L (39-117); Anion Gap 10 (12-20); Aspartate Amino Transferase 14 U/L (5-31); Bilirubin Total 0.6 mg/dL (0.0-1.0); Blood Urea Nitrogen 13 mg/dL (9-16); Calcium 9.3 mg/dL (8.4-10.2); Carbon Dioxide 26 mmol/L (22-29); Chloride 108 mmol/L (96-108); Cholesterol 245 mg/dL (<200); Estimated Glomerular Filt Rate > 60; Glucose Random 93 mg/dL (60-115); HDL Cholesterol 62 mg/dL (>40); LDL Cholesterol Calculated 171 mg/dL (<100); Potassium 4.2 mmol/L (3.3-5.1); Sodium 140 mmol/L (135-145); Triglycerides 63 mg/dL (<150)
[2024-04-26 09:10] LABS: Free T4 (Free Thyroxine) 0.89 ng/dL (0.71-1.85); Thyroid Stimulating Hormone 1.42 uIU/mL (0.32-4.0); Vitamin D 25-OH Total 22.5 ng/mL (>30)
[2024-04-26 09:12] LABS: Vitamin B12 283 pg/mL (200-900)
== END 2024-04-26 07:25 | disposition home or self-care (01) ==
LOC: HO.LAB 07:24
PROVIDERS: PCP Internal Medicine; Visit Provider Internal Medicine
DX: E78.00 Pure hypercholesterolemia, unspecified (principal); N20.0 Calculus of kidney
CPT/HCPCS: 36415; 80053; 80061; 82306; 82607; 82746; 84439; 84443; 85025

== ENCOUNTER 2024-08-29 11:40 | Outpatient (REF) | payer OTHER, SELFPAY ==
--- NOTE | ~2024-08-29 | MM_ITS ---
EXAMINATION: MM SCREENING DIGITAL BREAST TOMOSYNTHESIS, BILATERAL CLINICAL INFORMATION: Screening. Asymptomatic. COMPARISON: Mammography: Comparison is made with relevant avialable priors. TECHNIQUE: Digital mammography is performed in craniocaudal and mediolateral oblique views along with computer-aided detection (CAD). Digital breast tomosynthesis is performed in implant-displaced craniocaudal and implant-displaced mediolateral oblique views along with computer-aided detection (CAD). FINDINGS: The breasts are extremely dense, which lowers the sensitivity of mammography (ACR BI-RADS breast composition Category d). Bilateral implants which limits the sensitivity of mammography. There are no significant masses, abnormal calcifications, or other abnormalities. MM/MM tomosynthesis screen imp BI IMPRESSION: There are no significant changes from prior study. ASSESSMENT: BI-RADS BI-RADS 2 - Benign Findings RECOMMENDATION: Routine annual mammography screening. 1 year F/U This patient's information was entered into a reminder system with a target due date for their next mammogram. Electronically signed by: Sara Moyer DO 09/06/2024 10:45 AM [facility]
== END 2024-08-29 11:41 | disposition home or self-care (01) ==
LOC: HO.MAMMO 11:40
PROVIDERS: PCP Internal Medicine; Visit Provider Internal Medicine
DX: Z12.31 Encounter for screening mammogram for malignant neoplasm of breast (principal)
CPT/HCPCS: 77063; 77067

== ENCOUNTER → 2024-08-29 11:45 | Outpatient (BNV) | payer OTHER, SELFPAY | PROVIDERS: PCP Internal Medicine; Visit Provider Internal Medicine | DX: Z12.31 Encounter for screening mammogram for malignant neoplasm of breast (principal) | CPT/HCPCS: 77063; 77067 ==

== ENCOUNTER 2025-04-02 10:17 | Outpatient (AMB) | payer OTHER, SELFPAY ==
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
[2025-04-02 10:25] VITALS: BP 104/62; PULSE 56; O2SAT 98; BMI 19.8
== END 2025-04-02 11:01 | disposition home or self-care (01) ==
LOC: HO.HMCH 10:18
PROVIDERS: PCP Internal Medicine; Visit Provider Internal Medicine
DX: Z00.00 Encounter for general adult medical examination without abnormal findings (principal); R87.610 Atypical squamous cells of undetermined significance on cytologic smear of cervix (ASC-US); R87.810 Cervical high risk human papillomavirus (HPV) DNA test positive; E78.00 Pure hypercholesterolemia, unspecified; M25.511 Pain in right shoulder; L72.9 Follicular cyst of the skin and subcutaneous tissue, unspecified; M67.432 Ganglion, left wrist; H53.9 Unspecified visual disturbance

== ENCOUNTER → 2025-04-02 10:17 | Outpatient (BNVA) | payer OTHER, SELFPAY | PROVIDERS: PCP Internal Medicine; Visit Provider Internal Medicine | DX: Z00.00 Encounter for general adult medical examination without abnormal findings (principal); R87.610 Atypical squamous cells of undetermined significance on cytologic smear of cervix (ASC-US); R87.810 Cervical high risk human papillomavirus (HPV) DNA test positive; E78.00 Pure hypercholesterolemia, unspecified; M25.511 Pain in right shoulder; L72.9 Follicular cyst of the skin and subcutaneous tissue, unspecified; M67.432 Ganglion, left wrist; H53.9 Unspecified visual disturbance; R30.0 Dysuria | CPT/HCPCS: 96127; 99396 ==

== ENCOUNTER 2025-05-15 08:48 | Outpatient (REF) | payer OTHER, SELFPAY ==
--- OUTSIDE RECORDS SUMMARY | 2025-05-15 08:59 | XMS_ITS | Patient Health Record ---
Author Organization [facility] Address [address] [place] [id number] Care Team Providers Care Residential Director Name Role Phone Harvey Sena Unavailable [phone] Reason For Referral No Information Plan Of Treatment No Information
[2025-05-15 09:05] LABS: MANUAL DIFF FLAG NO
[2025-05-15 09:44] LABS: Hematocrit 41.2 % (37.0-47.0); Hemoglobin 13.9 g/dl (12.0-16.0); Imm Gran Abs Auto 0.02 X10*3/uL (0.00-0.03); Imm Gran Pct Auto 0.4 % (0.0-0.4); Lymphocytes Absolute Auto 2.0 X10*3/uL (1.2-4.9); Mean Corpuscular HGB Conc 33.7 g/dl (31.0-35.0); Mean Corpuscular Hemoglobin 29.3 pg (27.0-33.0); Mean Corpuscular Volume 86.9 fL (80.0-98.0); NRBC Abs Auto 0.000 X10*3/uL (0.0-0.012); NRBC Pct Auto 0.0 /100WBC (0.0-0.2); Platelet Count 244 X10*3/uL (160-400); Red Blood Count 4.74 X10*6/uL (4.20-5.50); White Blood Count 5.1 X10*3/uL (4.8-10.8)
[2025-05-15 10:24] LABS: Alanine Aminotransferase 12 U/L (0-31); Albumin Level 4.7 g/dL (3.5-5.0); Alkaline Phosphatase 45 U/L (39-117); Anion Gap 12 (12-20); Aspartate Amino Transferase 16 U/L (5-31); Blood Urea Nitrogen 16 mg/dL (9-16); Calcium 9.4 mg/dL (8.4-10.2); Carbon Dioxide 27 mmol/L (22-29); Chloride 106 mmol/L (96-108); Cholesterol 203 mg/dL (<200); Estimated Glomerular Filt Rate > 60; HDL Cholesterol 66 mg/dL (>40); Potassium 4.3 mmol/L (3.3-5.1); Sodium 141 mmol/L (135-145); Total Protein 6.9 g/dL (6.5-8.0); Triglycerides 50 mg/dL (<150)
[2025-05-15 10:43] LABS: Free T4 (Free Thyroxine) 0.92 ng/dL (0.71-1.85); Thyroid Stimulating Hormone 0.89 uIU/mL (0.32-4.0)
[2025-05-15 10:45] LABS: Vitamin B12 337 pg/mL (200-900)
[2025-05-15 10:49] LABS: Folate 8.0 ng/mL (> or = 4.0)
== END 2025-05-15 08:49 | disposition home or self-care (01) ==
LOC: HO.LAB 08:48
PROVIDERS: PCP Internal Medicine; Visit Provider Internal Medicine
DX: L72.11 Pilar cyst (principal); E78.00 Pure hypercholesterolemia, unspecified; R30.0 Dysuria
CPT/HCPCS: 36415; 80053; 80061; 82306; 82607; 82746; 84439; 84443; 85025; 99202

== ENCOUNTER 2025-05-15 09:46 | Outpatient (AMB) | payer OTHER, SELFPAY ==
--- NOTE | 2025-05-15 09:53 | MHC.OFFVIS ---
Vital Signs 05/15/25 10:00 Height 53 ft Weight 108 lb 8 oz BMI 0.2 BP 118/65 Blood Pressure Location Lt brachial Position Sitting Pulse 66 Intake Visit Reasons: Follicular cyst of the skin Intake Note: Patient is seen in office for evaluation and treatment of a cyst of the scalp. Pt c/o: onset yrs, hard to the touch, uncomfortable, feels thigh, had other removed in the past (benign), denies discharge, redness, would like to have it removed Night Auditor Required: No Accompanied by: Self / Same As Patient Allergies No Known Allergies (No Known Allergies*) Allergy (Unknown, Verified 05/15/25 09:59) HPI Comments Details: 44-year-old female patient presenting for evaluation of a right-sided Pilar cyst. This has been present for many years and has gradually increased in size. She denies any bleeding, discharge or pain associated with the cyst. She has had a previous cyst excised from the left scalp several years ago. She denies any problems following this procedure. She is requesting excision of this right-sided Pilar cyst. [facility] Medical History Anxiety ASCUS with positive high risk HPV Gestational diabetes Screening for hyperlipidemia Screening for hypothyroidism Tobacco abuse Surgical History H/O breast augmentation History of drainage of abscess H/O LEEP Family History Father COPD (chronic obstructive pulmonary disease) Emphysema lung Mother Mental health disorder Maternal Grandfather Heart disease CVD (cardiovascular disease) Paternal Grandfather Heart disease CVD (cardiovascular disease) Paternal Aunt Breast cancer Brother In good health Social History (Updated 04/02/25 @ 10:40 by Brian Ventura MD) Housing: Apartment Alcohol intake: current Comment: once a month 1 drink Patient Tobacco Use Status: Former Tobacco user Tobacco use type: Cigarette Years Smoked: stopped 2019 smoke weed e-Cigarette/Vaping Use: Never Used Second Hand Smoke Exposure: No Substance Use Type: Marijuana service: No Current occupational status: employed 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 1 cm Pilar cyst palpable in the parietal scalp right side with no overlying skin changes or alopecia Resp Effort & Inspection: normal respiratory effort, no audible wheezes, no cough and no retractions Skin Other: Warm, dry, no rashes Neuro General: patient oriented x3 Extrem General: No edema Assessment & Plan Assessment & Plan (1) Pilar cyst of scalp: Code(s): L72.11 - Pilar cyst Category: Medical Plan 44-year-old female patient presenting with a Pilar cyst of the right scalp. Patient has requested excision of this lesion. I reviewed the procedure, risks, and alternatives in detail and she consents to excision of the Pilar cyst under local anesthesia. This will be performed in the office. Coding Level of Care Code New Pt Level 4 (62412) Diagnoses Pilar cyst of scalp L72.11
[2025-05-15 10:00] VITALS: BP 118/65; PULSE 66
== END 2025-05-15 10:08 | disposition home or self-care (01) ==
LOC: HO.HGS 09:47
PROVIDERS: PCP Internal Medicine; Visit Provider Surgery
DX: L72.11 Pilar cyst (principal)
CPT/HCPCS: 99204

== ENCOUNTER 2025-06-07 13:41 | Outpatient (REF) | payer OTHER, SELFPAY ==
--- OUTSIDE RECORDS SUMMARY | 2025-06-07 11:31 | XMS_ITS | Patient Health Record ---
Author Organization [facility] Address [address] [place] [id number] Care Team Providers Care Commercial Lines Assistant Name Role Phone Harvey Sena Unavailable [phone] Reason For Referral No Information Plan Of Treatment No Information
== END 2025-06-07 13:42 | disposition home or self-care (01) ==
LOC: HO.HOSX 13:41
PROVIDERS: Visit Provider Physician Assistant
DX: Z13.89 Encounter for screening for other disorder (principal)

== ENCOUNTER 2025-06-28 13:40 | Outpatient (AMB) | payer OTHER, SELFPAY ==
--- NOTE | 2025-06-28 13:41 | MHC.PC.OV ---
Intake Visit Reasons: Infection Allergies No Known Allergies (No Known Allergies*) Allergy (Unknown, Verified 06/28/25 13:41) Medication List - Last Reconciled 06/28/25 by Brian Ventura MD amoxicillin 875 mg PO BID valacyclovir 500 mg PO BID PRN Tobacco use date assessed: 04/02/25 Dental Screening Dental Screen Date: 04/02/25 HPI Infection HPI Details concern an infection R indexfinger, dorsum split cuticle swollen and red PFSH Medical History Anxiety ASCUS with positive high risk HPV Gestational diabetes Screening for hyperlipidemia Screening for hypothyroidism Tobacco abuse Surgical History H/O breast augmentation History of drainage of abscess H/O LEEP Family History Father COPD (chronic obstructive pulmonary disease) Emphysema lung Mother Mental health disorder Maternal Grandfather Heart disease CVD (cardiovascular disease) Paternal Grandfather Heart disease CVD (cardiovascular disease) Paternal Aunt Breast cancer Brother In good health Social History (Updated 04/02/25 @ 10:40 by Brian Ventura MD) Housing: Apartment Alcohol intake: current Comment: once a month 1 drink Patient Tobacco Use Status: Former Tobacco user Tobacco use type: Cigarette Years Smoked: stopped 2019 smoke weed e-Cigarette/Vaping Use: Never Used Second Hand Smoke Exposure: No Substance Use Type: Marijuana service: No Current occupational status: employed 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 Harvey Baez, Barbara Barry, Jeet Orozco and colleagues, with an educational tatiana from [employer]. Physical exam (Primary Care) Tobacco/Smoking Status: Tobacco use Status Tobacco use date assessed 04/02/25 06/28/25 13:41 Patient Tobacco Use Status Former Tobacco user 06/28/25 13:41 Tobacco use type Cigarette 06/28/25 13:41 e-Cigarette/Vaping Use Never Used 06/28/25 13:41 Thrive Assessment: Date of Thrive Assessment Date Thrive assessed 03/27/25 06/28/25 13:41 Telehealth Telehealth Location of provider rendering services: practice address Location of patient: address on file Patient Identification confirmed using: Name, : Yes Telehealth method: video Patient verbally consented to treatment: Yes Patient verbally consented to billing insurance company: Yes Patient informed of any privacy concerns related to visit: Yes Minutes spent on Phone/Video with Pt.: 15 Coding Level of Care Code Tele Est Pt Level 3 (42582) Diagnoses Finger infection L08.9 Assessment & Plan Assessment & Plan (1) Finger infection: Comment: R index finger Code(s): L08.9 - Local infection of the skin and subcutaneous tissue, unspecified Category: Medical Plan History of Present Illness The patient is a 44-year-old female presenting with an infection in the right index finger. The patient reports a history of splitting the cuticle on her right index finger, which initially healed but subsequently developed soreness, swelling, and redness. The symptoms have persisted without improvement, and the patient experiences pain upon bending the finger. The patient has a previous similar episode involving her thumb, which was treated successfully with medication. There is no open wound or oozing, and the nail bed is unaffected, indicating the issue is localized to the knuckle area. The patient has a history of generalized anxiety disorder, which is managed as part of her ongoing care. Recent blood work from May 15 showed normal blood count, electrolytes, renal function, and liver function, with improved cholesterol levels, specifically a reduction in LDL from 171 to 127 mg/dL. Review of Systems - Musculoskeletal: Reports soreness, swelling, and redness in the right index finger. Denies open wound or oozing. Plan Patient was informed and verbally consented to the use of an ambient scribe for clinic note documentation during this visit. 1. Infection Of The Right Index Finger The patient will be treated with Augmentin, an antibiotic, to address the infection in the right index finger. The prescribed dosage is twice daily for seven days. The patient is advised to monitor for any adverse effects and to report if symptoms do not improve. 2. Generalized Anxiety Disorder The patient's generalized anxiety disorder is acknowledged as part of her ongoing care, though no specific changes to management were discussed during this visit. Discussion Notes During the consultation, I discussed the likely diagnosis of a skin infection in the right index finger and recommended treatment with Augmentin. I explained the dosage and duration of the antibiotic course and advised the patient to monitor for any adverse effects or lack of improvement. The patient was informed that the prescription would be sent to her preferred pharmacy, [facility] in [place]. Patient Instructions - Take Augmentin twice daily for seven days. - Monitor for any adverse effects or if symptoms do not improve. 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 Medications: New amoxicillin 875 mg PO BID 14 tabs 0RF L08.9 - Local infection of the skin and subcutaneous tissue, unspecified
--- OUTSIDE RECORDS SUMMARY | 2025-06-28 14:23 | XMS_ITS | Patient Health Record ---
Author Organization [facility] Address [address] [place] [id number] Care Team Providers Care Weather Observer Name Role Phone Harvey Sena Unavailable [phone] Reason For Referral No Information Plan Of Treatment No Information
== END 2025-06-28 14:06 | disposition home or self-care (01) ==
LOC: HO.HMCH 13:40
PROVIDERS: PCP Internal Medicine; Visit Provider Internal Medicine
DX: L08.9 Local infection of the skin and subcutaneous tissue, unspecified (principal)

== ENCOUNTER 2025-07-30 10:03 | Outpatient (REF) | payer OTHER, SELFPAY | END 2025-07-30 10:04 | disposition home or self-care (01) | LOC: HO.LNP 10:03 | PROVIDERS: PCP Internal Medicine; Visit Provider Surgery | DX: L72.11 Pilar cyst (principal) | CPT/HCPCS: 11421; 88304 ==

== ENCOUNTER 2025-07-30 10:03 | Outpatient (AMB) | payer OTHER, SELFPAY ==
--- NOTE | 2025-07-30 10:05 | A.OFFVIS_ITS ---
Vital Signs 3 07/30/25 10:12 Height 5 ft 3 in Weight 110 lb 8 oz BMI 19.6 BP 129/71 Blood Pressure Location Lt brachial Position Sitting Pulse 67 Intake Visit Reasons: lipoma scalp Intake Note: Patient is seen in office for evaluation of a cyst of the scalp. Pt c/o: onset yrs, increase in size, denies discharge, redness or other concerns, had a similar removed in the past * Okay to BOOK* Theater Technician Required: No Accompanied by: Self / Same As Patient Allergies No Known Allergies (No Known Allergies*) Allergy (Unknown, Verified 07/30/25 10:10) Medication List - Last Reconciled 07/30/25 by Mau Murillo MD amoxicillin 875 mg PO BID valacyclovir 500 mg PO BID PRN 3 days HPI Comments Details: Patient returns for excision of the right scalp Pilar cyst. She denies any ongoing symptoms. She feels the hair hair over the cyst has fallen out. After discussion of the procedure, risks, and alternatives, she consents to excision of the right scalp Pilar cyst. [facility] Medical History Screening for hypothyroidism Screening for hyperlipidemia ASCUS with positive high risk HPV Tobacco abuse Gestational diabetes Anxiety Surgical History H/O breast augmentation History of drainage of abscess H/O LEEP Family History Father COPD (chronic obstructive pulmonary disease) Emphysema lung Mother Mental health disorder Maternal Grandfather Heart disease CVD (cardiovascular disease) Paternal Grandfather Heart disease CVD (cardiovascular disease) Paternal Aunt Breast cancer Brother In good health Social History Housing: Apartment Alcohol intake: current Comment: once a month 1 drink Patient Tobacco Use Status: Former Tobacco user Tobacco use type: Cigarette Years Smoked: stopped 2019 smoke weed e-Cigarette/Vaping Use: Never Used Second Hand Smoke Exposure: No Substance Use Type: Marijuana service: No Current occupational status: employed 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 1 cm Pilar cyst, no evidence of infection Office Procedures Excision Details: Preoperative diagnosis: Pilar cyst right scalp Postoperative diagnosis: Same Procedure: Excision Pilar cyst right scalp Surgeon: Mau Murillo MD Security Intelligence Analyst: Maxx Welch PA-C Anesthesia: Lidocaine 1% with epinephrine Indications for procedure: Enlarging Pilar cyst of the right scalp Operative findings: Pilar cyst approximately 1 cm diameter Specimen: Pilar cyst Estimated blood loss: Less than 2 mL Complications: None Procedure details: Patient was brought to the procedure room and placed in a supine position. The site of surgery was confirmed by the patient in the right scalp. After assuring informed consent the skin was prepped with Betadine and draped in a sterile fashion. Local anesthesia was then infiltrated over the cyst. An incision was then made directly over the cyst and carried out through subcutaneous tissue up to the cyst wall. Blunt dissection with a hemostat was then used to dissect the cyst from the surrounding subcutaneous tissue. The cyst was removed and sent to pathology for further examination. Skin was then closed using a single interrupted 2-0 Prolene suture. Bacitracin was then applied. The patient tolerated the procedure well. She was discharged to home in stable condition. [id number] scalp/neck/hands/feet/genitalia 0.6cm-1cm Procedure code (CPT) selection complete Assessment & Plan Assessment & Plan (1) Pilar cyst of scalp: Code(s): L72.11 - Pilar cyst Category: Medical Plan Patient will return in 1 week for suture removal. Orders: Orders 2 Surgical Today L72.11 - Pilar cyst Coding Level of Care Code Procedure Only Diagnoses Pilar cyst of scalp L72.11 CPT Codes Scalp/Neck/Hands/Feet/Genetalia - CPT: 16401-[id number] scalp/neck/hands/feet/genitalia 0.6cm-1cm ([id number])
[2025-07-30 10:12] VITALS: BP 129/71; PULSE 67; BMI 19.6
--- OUTSIDE RECORDS SUMMARY | 2025-07-30 11:11 | XMS_ITS | Patient Health Record ---
Author Organization [facility] Address [address] [place] [id number] Care Team Providers Care Gantry Rigger Name Role Phone Harvey Sena Unavailable [phone] Reason For Referral No Information Plan Of Treatment No Information
== END 2025-07-30 10:34 | disposition home or self-care (01) ==
PROVIDERS: PCP Internal Medicine; Visit Provider Surgery
DX: L72.11 Pilar cyst (principal)
CPT/HCPCS: 11421

== ENCOUNTER 2025-08-06 10:36 | Outpatient (AMB) | payer OTHER, SELFPAY ==
--- NOTE | 2025-08-06 10:39 | MHC.OFFVIS ---
Vital Signs 08/06/25 10:45 Height 5 ft 3 in Weight 110 lb BMI 19.5 BP 122/68 Blood Pressure Location Rt brachial Position Sitting Pulse 68 Intake Visit Reasons: s/p excision scalp (off proc) Intake Note: Patient here s/p cyst excision on rt scalp. Patient c/o: few headaches over the weekend. Reports incision healing well. Denies oozing, bleeding. 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 Initially had some pain on the 1st day, this transitioned into a generalized tension headache over the next few days but has been not painful in the past few days. Denies drainage or bleeding. Denies fevers or chills some itchiness at the excision site. [facility] Medical History Screening for hypothyroidism Screening for hyperlipidemia ASCUS with positive high risk HPV Tobacco abuse Gestational diabetes Anxiety Surgical History H/O breast augmentation History of drainage of abscess H/O LEEP Family History Father COPD (chronic obstructive pulmonary disease) Emphysema lung Mother Mental health disorder Maternal Grandfather Heart disease CVD (cardiovascular disease) Paternal Grandfather Heart disease CVD (cardiovascular disease) Paternal Aunt Breast cancer Brother In good health Social History Housing: Apartment Alcohol intake: current Comment: once a month 1 drink Patient Tobacco Use Status: Former Tobacco user Tobacco use type: Cigarette Years Smoked: stopped 2019 smoke weed e-Cigarette/Vaping Use: Never Used Second Hand Smoke Exposure: No Substance Use Type: Marijuana service: No Current occupational status: employed 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 Pilar cyst excision site: Clean dry intact [address], removed in office without complication no bleeding, no erythema, no discharge. Nontender, appropriate scabbing Resp Effort & Inspection: normal respiratory effort and able to speak in complete sentences Neuro General: patient oriented x3 Assessment & Plan Assessment & Plan (1) Pilar cyst of scalp: Code(s): L72.11 - Pilar cyst Category: Medical Plan 44-year-old female s/p excision of Pilar cyst on scalp last week returned to the office for suture removal and wound check. Overall patient doing well, initially had some pain in the 1st few days but this has resolved. Denies any fevers or chills. Denies any bleeding or discharge from the incision site. Although it does feel itchy, this is likely due to the scabbing. A suture was removed in the office today without complication the incision site remains intact, there was some scabbing on the incision site. She is okay to gently clean this with soap and water but would avoid heavy scabbing of the scalp. We discussed results, patient was given a copy of results showing benign Pilar cyst. At this point no longer requiring routine follow up. She can return with any questions or concerns in the future. Coding Level of Care Code Est Pt Level 3 (08387) Diagnoses Pilar cyst of scalp L72.11
[2025-08-06 10:45] VITALS: BP 122/68; PULSE 68; BMI 19.5
--- OUTSIDE RECORDS SUMMARY | 2025-08-06 12:36 | XMS_ITS | Patient Health Record ---
Author Organization [facility] Address [address] [place] [id number] Care Team Providers Care Merchandise Planner Name Role Phone Harvey Sena Unavailable [phone] Reason For Referral No Information Plan Of Treatment No Information
== END 2025-08-06 10:45 | disposition home or self-care (01) ==
LOC: HO.HGS 10:37
PROVIDERS: PCP Internal Medicine
DX: L72.11 Pilar cyst (principal)
CPT/HCPCS: 99024

== ENCOUNTER → 2025-08-06 10:36 | Outpatient (BNVA) | payer OTHER, SELFPAY | PROVIDERS: PCP Internal Medicine | DX: L72.11 Pilar cyst (principal) | CPT/HCPCS: 99212 ==

== ENCOUNTER 2025-09-04 11:41 | Outpatient (REF) | payer OTHER, SELFPAY ==
--- OUTSIDE RECORDS SUMMARY | 2025-09-04 14:25 | XMS_ITS | Patient Health Record ---
Author Organization [facility] Address [address] [place] [id number] Care Team Providers Care Utility Bill Complaints Investigator Name Role Phone Hravey Sena Unavailable [phone] Reason For Referral No Information Plan Of Treatment No Information
== END 2025-09-04 11:42 | disposition home or self-care (01) ==
LOC: HO.MAMMO 11:41
PROVIDERS: PCP Internal Medicine; Visit Provider Internal Medicine
DX: Z12.31 Encounter for screening mammogram for malignant neoplasm of breast (principal)
CPT/HCPCS: 77063; 77067

== ENCOUNTER → 2025-09-04 11:45 | Outpatient (BNV) | payer OTHER, SELFPAY | PROVIDERS: PCP Internal Medicine; Visit Provider Internal Medicine | DX: Z12.31 Encounter for screening mammogram for malignant neoplasm of breast (principal) | CPT/HCPCS: 77063; 77067 ==

== ENCOUNTER 2025-10-31 09:55 | Outpatient (AMB) | payer OTHER, SELFPAY ==
[2025-10-31 10:17] VITALS: BP 116/70; BMI 19.7
--- NOTE | 2025-10-31 10:17 | A.OFFVIS_ITS ---
Vital Signs 10/31/25 10:17 Height 5 ft 3 in Weight 111 lb BMI 19.7 BP 116/70 Intake Visit Reasons: vaginal infection Biological Science Aide Required: No Allergies No Known Allergies (No Known Allergies*) Allergy (Unknown, Verified 10/31/25 10:27) Medication List - Last Reconciled 10/31/25 by Giulia Conteh CNM fluconazole 150 mg PO Q3D 2 doses valacyclovir 500 mg PO BID PRN 3 days Is last menstrual period known: Yes Last menstrual period: 10/15/25 HPI HPI vaginal infection: Details: Patient has been struggling with vaginal irritation and going from what she perceived as yeast infections to bacterial vaginosis and vaginal irritation for quite a while she has not been sexually active in about 3 months she is noting vaginal dryness she has observed herself with a mirror and was wondering if she had a change in pigmentation that could indicate lichen sclerosis. She does have a good water-based lubricant that she has used that is plant an herbal based that she likes. She is contemplating becoming sexually active and is also interested in a method of control at this point she is wondering about perimenopause. And she is wondering what tests she can have done to indicate this. She does have a history of abnormal Pap smears and because of insurance changes she had missed a follow-up Pap smear or 2 and she has not been seen in a while she has a history of LEEP. Her last Pap smear was negative however previous ones to the were abnormal with positive HPV she had had biopsies. She has not used control in a long time because of previous partner had a vasectomy. Her last periods started around October 14 she has missed a couple of periods this year and she did have 1 month when she had a period the came early in the month and 1 late in the month. She does have an appointment coming up in December with Dr. Hinojosa but because she was having so much concerned she also had an appointment scheduled the end of November with someone else but then she called today and got this appointment. She tends to wear leggings a lot and she does work out a lot. She tries to wear cotton on these or on these with cotton inserts she does try to change out a clothing she is mindful of her diet she does weights and yoga and she does try to eat well and watch her diet. [facility] Medical History Screening for hypothyroidism Screening for hyperlipidemia ASCUS with positive high risk HPV Tobacco abuse Gestational diabetes Anxiety Surgical History H/O breast augmentation History of drainage of abscess H/O LEEP Family History Father COPD (chronic obstructive pulmonary disease) Emphysema lung Mother Mental health disorder Maternal Grandfather Heart disease CVD (cardiovascular disease) Paternal Grandfather Heart disease CVD (cardiovascular disease) Paternal Aunt Breast cancer Brother In good health Social History Housing: Apartment Alcohol intake: current Comment: once a month 1 drink Patient Tobacco Use Status: Former Tobacco user Tobacco use type: Cigarette Years Smoked: stopped 2019 smoke weed e-Cigarette/Vaping Use: Never Used Second Hand Smoke Exposure: No Substance Use Type: Marijuana service: No Current occupational status: employed 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 Cognitive needs: No Hearing needs: No Vision needs: No Female Reproductive History Menstrual Age of Menarche: 10 Date of last menstrual period: 10/15/25 control method: none Total pregnancies: 3 Date of last pap smear: 06/03/23 (negative) History of abnormal pap smear: Yes (2021 DOLORES III) Physical Exam Vital Signs: Last Vital Signs BP 116/70 10/31/25 10:17 BMI result Body Mass Index 19.7 Other: This provider does not observe any inflammation or abnormal discharge or abnormality or change in pigmentation there is thinning of tissue that would be consistent with aging/atrophic changes sandy menopausal only and there is subtle vaginal dryness consistent with either sandy menopausal changes or luteal phase. Vagina is not very moist scant white discharge cervix multiparous status post LEEP nontender mobile uterus is small anteverted mobile nontender adnexa nontender nonenlarged patient has good tone with Kegel. External Female Exam: normal external appearance Speculum Exam - Vagina: normal appearance of the vagina and normal vaginal discharge Speculum Exam - Cervix: normal appearance of the cervix Bimanual exam- vagina & uterus: normal bimanual exam, uterine size normal, consistency normal, uterine mobility normal, uterine shape normal and non-tender Bimanual Exam- Adnexa, other: normal adnexae, no masses and No adnexal tenderness Results Reviewed Results Reviewed: Reviewed patient's past Pap smears and biopsies. Most recent was negative in 2022 with plan to repeat in 2023. Assessment & Plan Assessment & Plan (1) DOLORES II (cervical intraepithelial neoplasia II): Comment: s/p LEEP CONE w post cone ECC neg margins Code(s): N87.1 - Moderate cervical dysplasia Category: Medical (2) ASCUS with positive high risk HPV cervical: Comment: History of DOLORES 2 status post LEEP cone with negative margins Colpo biopsy/ ECC negative Code(s): R87.610 - Atypical squamous cells of undetermined significance on cytologic smear of cervix (ASC-US); R87.810 - Cervical high risk human papillomavirus (HPV) DNA test positive Category: Medical (3) Atrophic condition of skin: Code(s): L90.9 - Atrophic disorder of skin, unspecified Category: Medical (4) Perimenopause: Code(s): N95.1 - Menopausal and female climacteric states Category: Medical (5) control counseling: Code(s): Z30.09 - Encounter for other general counseling and advice on contraception Category: Medical (6) Vaginal dryness: Code(s): N89.8 - Other specified noninflammatory disorders of vagina Category: Medical Plan Discussed the many challenges of sandy menopausal changes in all their forms and how she is managing and she is managing very very well discussed all the positive thing she is doing to maintain her health including diet exercise stretching weights yoga etc. additionally discussed the usual non benefit of doing hormonal labs despite there popularity in the press however as we are investigating all that maybe going on and all of her symptoms I will order thyroid level estradiol level and some other hormonal levels to assess any changes before she starts on hormonal control which she is interested in she is expecting her period in a couple of weeks so I recommend she do with the labs next week and have the pills ready to start with her. At the beginning of her. She will be seen at the end of December and she is on the portal I instructed her to call if any of the levels are abnormal or if she wishes to discuss them with me then we would schedule a tele visit to do so. Also discussed possible use of Mirena or ParaGard IUD. They would also need to be inserted at the beginning of a menses. Also discussed the challenges of perimenopause and that if she were interested in hormonal replacement therapy at some stage there are other provider's in the system that may have more comfort with that. Discussed the very real challenges of tissue changes and mucosal changes and moisture and lubrication changes as the hormones diminish in the sandy menopausal time she is familiar with water- based lubricants and does have access to ones that she has liked and has tried and used with success. For now I am sending a prescription for progestin only OCPs and I am ordering the lab work as above I also did her Pap smear as she is overdue and has a history of abnormals I do not expect any abnormal findings today from any of the STI testing though bacterial vaginosis can always be a finding that may show up microscopically as well as yeast. Patient took Diflucan as recently as 2 weeks ago, with minimal relief. Orders: Orders Bacterial Vaginosis Panel Today N89.8 - Other specified noninflammatory disorders of vagina Thyroid Stimulating Hormone Today N87.1 - Moderate cervical dysplasia, N89.8 - Other specified noninflammatory disorders of vagina, N95.1 - Menopausal and female climacteric states, R87.610 - Atypical squamous cells of undetermined significance on cytologic smear of cervix (ASC-US), R87.810 - Cervical high risk human papillomavirus (HPV) DNA test positive, Z30.09 - Encounter for other general counseling and advice on contraception DHEA Sulfate Today N87.1 - Moderate cervical dysplasia, N89.8 - Other specified noninflammatory disorders of vagina, N95.1 - Menopausal and female climacteric states, R87.610 - Atypical squamous cells of undetermined significance on cytologic smear of cervix (ASC-US), R87.810 - Cervical high risk human papil lomavirus (HPV) DNA test positive, Z30.09 - Encounter for other general counseling and advice on contraception CT NG by PCR Vag/Cerv Today N89.8 - Other specified noninflammatory disorders of vagina, Z20.2 - Contact with and (suspected) exposure to infections with a predominantly sexual mode of transmission Pap Smear Today N87.1 - Moderate cervical dysplasia Lutenizing Hormone Today N87.1 - Moderate cervical dysplasia, N89.8 - Other specified noninflammatory disorders of vagina, N95.1 - Menopausal and female climacteric states, R87.610 - Atypical squamous cells of undetermined significance on cytologic smear of cervix (ASC-US), R87.810 - Cervical high risk human papillomavirus (HPV) DNA test positive, Z30.09 - Encounter for other general counseling and advice on contraception Estrad Free (Tot Ultra + Free) Today N87.1 - Moderate cervical dysplasia, N89.8 - Other specified noninflammatory disorders of vagina, N95.1 - Menopausal and female climacteric states, R87.610 - Atypical squamous cells of undetermined significance on cytologic smear of cervix (ASC-US), R87.810 - Cervical high risk human papillomavirus (HPV) DNA test positive, Z30.09 - Encounter for other general counseling and advice on contraception Follicle Stimulating Hormone Today N87.1 - Moderate cervical dysplasia, N89.8 - Other specified noninflammatory disorders of vagina, N95.1 - Menopausal and female climacteric states, R87.610 - Atypical squamous cells of undetermined significance on cytologic smear of cervix (ASC-US), R87.810 - Cervical high risk human papillomavirus (HPV) DNA test positive, Z30.09 - Encounter for other general counseling and advice on contraception Coding Level of Care Code Est Pt Level 3 (09567) Diagnoses DOLORES II (cervical intraepithelial neoplasia II) N87.1 ASCUS with positive high risk HPV cervical R87.610; R87.810 Atrophic condition of skin L90.9 Perimenopause N95.1 control counseling Z30.09 Vaginal dryness N89.8 Time Spent (min) 40 Comment 100% discussing her symptoms and possible issues involved and management.
--- OUTSIDE RECORDS SUMMARY | 2025-10-31 10:45 | XMS_ITS | Patient Health Record ---
Author Organization [facility] Address [address] [place] [id number] Care Team Providers Care Electrical Assemblies Supervisor Name Role Phone Harvey Sena Unavailable [phone] Reason For Referral No Information Plan Of Treatment No Information
== END 2025-10-31 11:12 | disposition home or self-care (01) ==
LOC: HO.HWSM 09:55
PROVIDERS: PCP Internal Medicine; Visit Provider Advanced Practice Midwife
DX: N87.1 Moderate cervical dysplasia (principal); R87.610 Atypical squamous cells of undetermined significance on cytologic smear of cervix (ASC-US); R87.810 Cervical high risk human papillomavirus (HPV) DNA test positive; L90.9 Atrophic disorder of skin, unspecified; N95.1 Menopausal and female climacteric states; Z30.09 Encounter for other general counseling and advice on contraception; N89.8 Other specified noninflammatory disorders of vagina
CPT/HCPCS: 99213

== ENCOUNTER 2025-10-31 09:55 | Outpatient (REF) | payer OTHER, SELFPAY ==
[2025-11-05 15:40] LABS: Bacterial Vaginosis PCR POSITIVE (Negative); Candida Group PCR NOT DETECTED (Not Detect); Candida glab krusei PCR NOT DETECTED (Not Detect); Trichomonas vaginalis PCR NOT DETECTED (Not Detect)
[2025-11-05 16:11] LABS: CT PCR NOT DETECTED (Not Detect.); NG PCR NOT DETECTED (Not Detect.)
== END 2025-10-31 09:56 | disposition home or self-care (01) ==
LOC: HO.LAB 09:55
PROVIDERS: PCP Internal Medicine; Visit Provider Advanced Practice Midwife
DX: R87.610 Atypical squamous cells of undetermined significance on cytologic smear of cervix (ASC-US) (principal); R87.810 Cervical high risk human papillomavirus (HPV) DNA test positive; L90.9 Atrophic disorder of skin, unspecified; N95.1 Menopausal and female climacteric states; N89.8 Other specified noninflammatory disorders of vagina; Z30.9 Encounter for contraceptive management, unspecified
CPT/HCPCS: 81515; 87494; 99212

== ENCOUNTER 2025-10-31 11:00 | Outpatient (REF) | payer OTHER, SELFPAY | END 2025-10-31 11:01 | disposition home or self-care (01) | LOC: HO.LNP 11:00 | PROVIDERS: Visit Provider Advanced Practice Midwife | DX: N87.1 Moderate cervical dysplasia (principal); Z11.51 Encounter for screening for human papillomavirus (HPV) | CPT/HCPCS: 87626; 88175 ==